=== PATIENT | female | born 1970 | race Two or more races ===

== ENCOUNTER 2018-09-08 17:30 | Emergency (ER) | payer BC ==
[~2018-09-08] VITALS: Ht 175.3 cm; Wt 57.6 kg
[2018-09-08 18:17] VITALS: BP 108/60
[2018-09-08] MEDS ORDERED: IBUPROFEN 400 MG TABLET ONE (18:34)
[2018-09-08] MEDS ORDERED: IBUPROFEN 400 MG TABLET PO ONE (19:00)
== END 2018-09-08 19:52 | disposition home or self-care (01) ==
LOC: ER 17:30
DX: J02.8 Acute pharyngitis due to other specified organisms (principal); Z88.6 Allergy status to analgesic agent
CPT/HCPCS: 86403-TC; 87070-TC